=== PATIENT | female | born 1960 | race African-American/Black ===

== ENCOUNTER 2023-01-31 18:56 | Observation (INO) ==
--- NOTE | 2023-01-31 19:31 | DR.CP ---
HPI Time Seen Time Seen by Provider: 01/31/23 19:31 HPI Comment HPI Comment: PATIENT IS 62YR OLD FEMALE WITH HISTORY OF DM, HTN, DYSLIPIDEMIA CHF IN ER WITH CHEST PAIN, DIZZINESS, SYNCOPY AND NEAR SYNCOPY. SYMPTOMS STATED TUESDAY. CURRENTLY UNDERGOING CARDIAC WORK UP UNDER DR. SMITH IN [facility]. SHE HAS INDWELLING HOLTER MONITOR. PENDING ECHO AND STRESS TEST. PATIENT IS WEAK AND TIRED. NO FEVER OR CONGESTION. SHE HAS BEING HAVING LT SHOULDER PAIN SINCE TUESDAY. PAIN IS CURRENTLY 5/10 AND IS SHARP. SHE IS FEELING WORSE PAST SEVERAL HOURS. Complaint Chief Complaint Doctor Comments: CHEST PAIN, EPISODE OF SYNCOPY AND NEAR SYNCOPY AND DIZZINESS SINCE LAST TUESDAY. WORSE TODAY. COVID-19 Coronavirus risk:travel/contact w/high risk person: No Has patient experienced Coronavirus symptoms: No Reviewed Nurses Notes Review: Yes ROS Review of Systems Constitutional: Weakness and Fatigue; negative Fever Eyes: No Symptoms Reported; negative Blurred Vision ENTM: negative Nose Discharge or Nose Congestion Respiratoy: Short of Breath (ON EXERTION.); negative Moist Cough or Wheezing Cardiovascular: Chest Pain and Syncope Gastrointestinal/Abdominal: No Symptoms Reported; negative Abdominal Pain, Constipation, Diarrhea or Vomiting Genitourinary: No Symptoms Reported; negative Dysuria, Frequency or Hematuria Neurological: Weakness and Dizziness; negative Headache Musculoskeletal: Arm (LEFT ARM PAIN.); negative Muscle Pain Integumentary: No Symptoms Reported; negative Rash or Juandice Hematologic/Lymphatic: No Symptoms Reported, Easy Bleeding and Easy Bruising Endocrine: No Symptoms Reported; negative Increased Thirst or Increased Urine Psychiatric: No Symptoms Reported All Other Systems: Reviewed and Negative PE Vitals Vitals: Temperature 98.2 F Pulse Rate 70 Respiratory Rate 15 Blood Pressure 143/75 O2 Sat by Pulse Oximetry 99 General Limitations: No Limitations General Appearance: Alert and In No Apparent Distress Head Head Exam: Normal Inspection and Atraumatic Eyes Eye exam: Normal Appearance, PERRL and EOMI; negative Scleral Icterus or Conjunctival Injection ENT ENT Exam: Normal Exam, Normal Oropharynx, Normal External Ear Exam and TM's Normal Bilaterally Chest Chest Inspection: Normal Inspection and Symmetric Chest Wall Rise Respiratory Respiratory Exam: Normal Lung Sounds Bilat and Accessory Muscle Use Respiratory Exam: Bilateral: Rhonchi Cardiovascular Cardiovascular Exam: Regular Rate, Normal Rhythm and Normal Heart Sounds; negative Systolic Murmur or Diastolic Murmur Pulse: Normal Edema: Normal Abdominal Exam Abdominal Exam: Normal Inspection, Normal Bowel Sounds and Soft; negative Tenderness Extremities Extremities Exam: Normal Inspection and Normal Capillary Refill; negative Edema Back Back Exam: Normal Inspection; negative (R) CVA Tenderness or (L) CVA Tenderness Neurologic Neurological Exam: Alert, Oriented X3, CN II-XII Intact, Normal Gait and Reflexes Normal; negative Motor Sensory Deficit Psychiatric Psychiatric Exam: Normal Affect and Normal Mood Skin Skin Exam: Intact MDM Additional Information Additional Information Obtained From: Family Differential Diagnosis Differential Diagnosis: Angina, Aortic Dissection, CHF, Myocardial Infarction, Pericarditis, Pneumonia and Pulmonary Embolus COURSE Treatment Treatment: SEE ORDERS DONE WHILE PATIENT WAS IN ER. Consultation Consultation Comments: DISCUSSED PATIENT WITH DR. MILLAN. HE WILL ADMIT PATIENT. Education/Counseling Education/Counseling: Patient and Family Educated On: Treatment ROR Labs Reviewed Laboratory Results Reviewed?: Yes Result Diagrams: 02/02/23 05:13 02/02/23 05:13 Laboratory: WBC 5.4 X10^3/uL (3.6-10.0) 01/31/23 19:54 RBC 4.21 X10^6/uL (3.5-5.4) 01/31/23 19:54 Hgb 10.8 g/dL (12.0-16.0) L 01/31/23 19:54 Hct 32.1 % (36.0-47.0) L 01/31/23 19:54 MCV 76.4 fL (80.0-100.0) L 01/31/23 19:54 MCH 25.6 pg (27.0-34.0) L 01/31/23 19:54 MCHC 33.6 g/dL (33.0-35.0) 01/31/23 19:54 RDW 14.7 % (11.6-16.5) 01/31/23 19:54 Plt Count 282 X10^3/uL (150.0-450.0) 01/31/23 19:54 MPV 7.5 fL (7.4-11.0) 01/31/23 19:54 Neut % (Auto) 53.5 % (42.0-75.0) 01/31/23 19:54 Lymph % (Auto) 33.5 % (21.0-51.0) 01/31/23 19:54 [place] % (Auto) 12.4 % (0.0-13.0) 01/31/23 19:54 Eos % (Auto) 0.4 % (0.9-2.9) L 01/31/23 19:54 Baso % (Auto) 0.2 % (0.2-1.0) 01/31/23 19:54 Neut # (Auto) 2.9 x10^3/uL (2.2-4.8) 01/31/23 19:54 Lymph # (Auto) 1.8 X10^3/uL (1.3-2.9) 01/31/23 19:54 [place] # (Auto) 0.7 x10^3/uL (0.3-0.8) 01/31/23 19:54 Eos # (Auto) 0.0 x10^3/uL (0.0-0.2) 01/31/23 19:54 Baso # (Auto) 0.0 X10^3/uL (0.0-0.1) 01/31/23 19:54 Absolute Nucleated RBC 0.1 /100WBC 01/31/23 19:54 D-Dimer 0.73 ug/ml (0.0-0.57) H 01/31/23 19:54 Sodium 142 mmol/L (136-145) 01/31/23 19:54 Corrected Sodium TNP 01/31/23 19:54 Potassium 3.5 mmol/L (3.5-5.1) 01/31/23 19:54 Chloride 100 mmol/L (98-107) 01/31/23 19:54 Carbon Dioxide 37.4 mmol/L (21-32) H 01/31/23 19:54 BUN 20 mg/dL (7-18) H 01/31/23 19:54 Creatinine 1.69 mg/dL (0.55-1.02) H 01/31/23 19:54 Est GFR (MDRD) Af Amer 40 (>60) L 01/31/23 19:54 Est GFR (MDRD) Non-Af 33 (>60) L 01/31/23 19:54 Glucose 84 mg/dL (65-99) 01/31/23 19:54 Calcium 9.1 mg/dL (8.5-10.1) 01/31/23 19:54 Corrected Calcium 9.7 mg/dL (8.5-10.1) 01/31/23 19:54 Total Bilirubin 0.80 mg/dL (0.2-1.0) 01/31/23 19:54 AST 23 Units/L (15-37) 01/31/23 19:54 ALT 18 Units/L (12-78) 01/31/23 19:54 Alkaline Phosphatase 72 Units/L (46-116) 01/31/23 19:54 Creatine Kinase 65 Units/L (26-192) 01/31/23 19:54 Troponin I High Sens 15.6 ng/L (4.0-60.0) 01/31/23 19:54 Total Protein 7.0 g/dL (6.4-8.2) 01/31/23 19:54 Albumin 3.3 g/dL (3.4-5.0) L 01/31/23 19:54 Globulin 3.7 g/dL (2.5-4.5) 01/31/23 19:54 Albumin/Globulin Ratio 0.9 Ratio (1.1-2.1) L 01/31/23 19:54 EKG Rate: 67 [place]: Normal Rhythm: NSR Block: None Hypertrophy: LVH ST: Nonsp Opioid Opioid Risk Tool Total: 0 Total Score Risk Category: Low Risk Copyright: Mason BAHENA predicting aberrant behaviors Discharge Plan Diagnosis Discharge Problem: Chest pain, Episode of syncope, Elevated d-dimer, Dizziness Discharge Plan Patient Disposition: ADMITTED INPATIENT Condition: Stable
[2023-01-31] MEDS ORDERED: ASPIRIN 81 MG CHEWTAB PO ONE (19:45)
[2023-01-31] MEDS ORDERED: ASPIRIN 81 MG CHEWTAB ONE (19:50)
--- NOTE | 2023-01-31 19:53 | EKG ---
Test Reason : CHEST PAIN Blood Pressure : */* mmHG Vent. Rate : 67 BPM Atrial Rate : 67 BPM P-R Int : 194 ms QRS Dur : 74 ms QT Int : 428 ms P-R-T Axes : 90 -12 35 degrees QTc Int : 452 ms Normal sinus rhythm Minimal voltage criteria for LVH, may be normal variant ( R in aVL ) Nonspecific T wave abnormality Abnormal ECG Confirmed by Moustapha Orourke ([id number]) on 02/02/2023 8:07:41 AM Referred By: Confirmed By: Moustapha Orourke
[2023-01-31 20:04] LABS: BASOPHILS % (AUTO) 0.2 % (0.2-1.0); EOSINOPHILS % (AUTO) 0.4 % (0.9-2.9); HEMATOCRIT 32.1 % (36.0-47.0); HEMOGLOBIN 10.8 g/dL (12.0-16.0); LYMPHOCYTES # (AUTO) 1.8 X10^3/uL (1.3-2.9); LYMPHOCYTES % (AUTO) 33.5 % (21.0-51.0); MEAN CORPUSCULAR HEMOGLOBIN 25.6 pg (27.0-34.0); MEAN CORPUSCULAR HGB CONC 33.6 g/dL (33.0-35.0); MEAN CORPUSCULAR VOLUME 76.4 fL (80.0-100.0); MEAN PLATELET VOLUME 7.5 fL (7.4-11.0); MONOCYTES # (AUTO) 0.7 x10^3/uL (0.3-0.8); MONOCYTES % (AUTO) 12.4 % (0.0-13.0); NEUTROPHILS # (AUTO) 2.9 x10^3/uL (2.2-4.8); NEUTROPHILS % (AUTO) 53.5 % (42.0-75.0); RED BLOOD COUNT 4.21 X10^6/uL (3.5-5.4); RED CELL DISTRIBUTION WIDTH 14.7 % (11.6-16.5); WHITE BLOOD COUNT 5.4 X10^3/uL (3.6-10.0)
[2023-01-31 20:16] LABS: ALANINE AMINOTRANSFERASE 18 Units/L (12-78); ALBUMIN 3.3 g/dL (3.4-5.0); ALKALINE PHOSPHATASE 72 Units/L (46-116); ASPARTATE AMINO TRANSFERASE 23 Units/L (15-37); BLOOD UREA NITROGEN 20 mg/dL (7-18); CALCIUM 9.1 mg/dL (8.5-10.1); CARBON DIOXIDE 37.4 mmol/L (21-32); CHLORIDE 100 mmol/L (98-107); COR CA(FOR HYPOALB) 9.7 mg/dL (8.5-10.1); CREATINE KINASE 65 Units/L (26-192); CREATININE 1.69 mg/dL (0.55-1.02); SODIUM 142 mmol/L (136-145); eGFR NON BLACK RACES 33 (>60)
[2023-01-31] MEDS ORDERED: NS 1,000 ML IV 1,000 ML IV SCH (23:00)
[2023-01-31] MEDS ORDERED: K-DUR TAB 20 MEQ PO PRN (23:03)
[2023-01-31] MEDS ORDERED: KLOR-CON PO PRN (23:03)
[2023-01-31] MEDS ORDERED: K-RIDER 10 MEQ/NS 100 ML 10 MEQ/100 ML BAG IV PRN (23:03)
[2023-01-31] MEDS ORDERED: MICRO K EXTEN CAP 10 MEQ PO PRN (23:03)
[2023-01-31] MEDS: LOVENOX INJ 60 MG SYR SC SCH (23:30)
[2023-01-31 23:35] VITALS: BMI 25.0
--- NOTE | 2023-01-31 23:42 | EKG ---
Test Reason : Chest pain Blood Pressure : */* mmHG Vent. Rate : 66 BPM Atrial Rate : 66 BPM P-R Int : 230 ms QRS Dur : 90 ms QT Int : 312 ms P-R-T Axes : 89 -13 184 degrees QTc Int : 327 ms Sinus rhythm with 1st degree AV block Nonspecific T wave abnormality Abnormal ECG When compared with ECG of 31-JAN-2023 19:17, (Unconfirmed) SC interval has increased QT has shortened Confirmed by Moustapha Orourke ([id number]) on 02/02/2023 8:09:02 AM Referred By: Confirmed By: Moustapha Orourke
[2023-02-01] MEDS ORDERED: MORPHINE SULFATE INJ 2 MG INJ IVP PRN (05:25)
[2023-02-01 05:28] LABS: BASOPHILS % (AUTO) 0.3 % (0.2-1.0); EOSINOPHILS # (AUTO) 0.1 x10^3/uL (0.0-0.2); EOSINOPHILS % (AUTO) 1.4 % (0.9-2.9); HEMOGLOBIN 10.8 g/dL (12.0-16.0); LYMPHOCYTES # (AUTO) 2.3 X10^3/uL (1.3-2.9); LYMPHOCYTES % (AUTO) 43.2 % (21.0-51.0); MEAN CORPUSCULAR HEMOGLOBIN 25.3 pg (27.0-34.0); MEAN CORPUSCULAR HGB CONC 32.7 g/dL (33.0-35.0); MEAN CORPUSCULAR VOLUME 77.3 fL (80.0-100.0); MEAN PLATELET VOLUME 7.7 fL (7.4-11.0); MONOCYTES # (AUTO) 0.6 x10^3/uL (0.3-0.8); NEUTROPHILS # (AUTO) 2.3 x10^3/uL (2.2-4.8); NEUTROPHILS % (AUTO) 43.1 % (42.0-75.0); RED BLOOD COUNT 4.27 X10^6/uL (3.5-5.4); RED CELL DISTRIBUTION WIDTH 14.6 % (11.6-16.5); WHITE BLOOD COUNT 5.4 X10^3/uL (3.6-10.0)
--- NOTE | 2023-02-01 05:40 | EKG ---
Test Reason : chest pain Blood Pressure : */* mmHG Vent. Rate : 68 BPM Atrial Rate : 68 BPM P-R Int : 204 ms QRS Dur : 92 ms QT Int : 312 ms P-R-T Axes : 67 -2 235 degrees QTc Int : 331 ms Normal sinus rhythm Nonspecific T wave abnormality Abnormal ECG When compared with ECG of 31-JAN-2023 23:25, (Unconfirmed) No significant change was found Confirmed by Moustapha Orourke ([id number]) on 02/02/2023 8:08:58 AM Referred By: Confirmed By: Moustapha Orourke
[2023-02-01 05:50] LABS: ALANINE AMINOTRANSFERASE 16 Units/L (12-78); ALKALINE PHOSPHATASE 69 Units/L (46-116); ASPARTATE AMINO TRANSFERASE 22 Units/L (15-37); BLOOD UREA NITROGEN 15 mg/dL (7-18); CALCIUM 8.7 mg/dL (8.5-10.1); CARBON DIOXIDE 35.2 mmol/L (21-32); CHLORIDE 102 mmol/L (98-107); CHOL/HDL RATIO 2.1 (0.0-5.0); CHOLESTEROL 66 mg/dL (0-200); COR CA(FOR HYPOALB) 9.5 mg/dL (8.5-10.1); CREATININE 1.13 mg/dL (0.55-1.02); HDL CHOLESTEROL 31 mg/dL (40-60); MAGNESIUM 1.4 mg/dL (2.0-2.9); SODIUM 143 mmol/L (136-145); TOTAL PROTEIN 6.9 g/dL (6.4-8.2); TRIGLYCERIDES 42 mg/dL (0-150); eGFR NON BLACK RACES 52 (>60)
[2023-02-01 06:08] LABS: INR 1.08 (0.8-1.3)
[2023-02-01] MEDS: LOVENOX INJ 60 MG SYR SC SCH ×2 (09:27→21:15)
[2023-02-01] MEDS: NEURONTIN CAP 300 MG PO SCH ×4 (09:27→21:13)
[2023-02-01] MEDS: ASPIRIN PO SCH (09:27)
[2023-02-01] MEDS: COREG TAB 25 MG PO SCH ×2 (09:28→21:14)
[2023-02-01] MEDS: NORVASC TAB 10 MG PO SCH (09:31)
[2023-02-01] MEDS: PriLOSEC PO SCH (09:31)
[2023-02-01] MEDS: PROTONIX INJ 40 MG VIAL 80 MG in NS 100 ML IV 80 ML IV SCH ×2 (09:37→21:15)
[2023-02-01] MEDS ORDERED: NS 1,000 ML IV 1,000 ML IV SCH ×2 (10:00)
--- NOTE | 2023-02-01 10:56 | CT ---
HISTORYElevated D-dimer, shortness of breathSTUDYCTA chest with contrast for pulmonary embolusTechnique: Axial post-contrast images with coronal, sagittal, and 3 dimensional maximum intensity projection images obtained and evaluated. Dose reduction procedures were used with mA/kv adjusted for body size.COMPARISONNoneFINDINGSThere is no evidence for acute pulmonary thromboembolic disease. Examination of the mediastinum demonstrated no evidence for mediastinal masses, enlarged mediastinal or enlarged hilar adenopathy or significant aortic abnormality. No pleural effusions are identified. No chest wall or axillary abnormality is identified. Postsurgical changes are present in the area of the gastroesophageal junction. Those portions of the upper abdominal organs visualized were within normal limits to the limitations of early arterial injection timing. Examination of the lung howard demonstrated no significant nodules, masses, alveolar infiltrates, areas of consolidation, peribronchial thickening, or bronchiectasis.IMPRESSIONNo evidence for acute pulmonary thromboembolic diseaseNo acute pulmonary infiltrates identifiedElectronically signed by: KACEY HOLCOMB (Feb 01, 2023 10:54:46)
--- NOTE | 2023-02-01 18:15 | DR.H&P ---
H&P - History & Physical for Day of: H&P Date: 01/31/23 - Chief Complaint Chief Complaint: chest pain - History of Present Illness History of Present Illness: PT IS 62 BF, ER ADMISSION AFTER PRESENTING WITH CO CHEST PAIN AND SOB. PT DENIES ANY FEVER OR FLU LIKE SYMPTOMS. PT REPORTS SHE WILL "LOSE" HER VOICE WHILE AT WORK. PT REPORTS PMH OF HTN AND HEART FAILURE. PT DENIES ANY PREVIOUS CABG OR STENTING. PT RECENTLY SEEN DR RAJPUT AND HAS ON A HOLTER MONITOR. PT REPORTS SHE WAS INSTRUCTED TO REPORT TO THE ER BECAUSE HER CO CHEST PAIN. - Past Medical History Past Medical History: CHF, Depression, Diabetes, Dyslipidemia, GERD, Hypertension - Past Surgical History Surgical History: Cholecystectomy, Ortho Surgery, Weight Loss Surgery, Other - Family History Family Medical History: Diabetes Mellitus, Hypertension - Social History Does patient currently use any type of tobacco product: No Have you used tobacco products in the last 12 months: No Type of Tobacco Use: None Does any household member use tobacco: No Alcohol Use: None Drug Use: None - Medications Home Medications: Sulfa (Sulfonamide Antibiotics) [SULFA] Allergy (Verified 01/31/23 19:40) CONTINUE taking the following medications amitriptyline 25 mg tablet 12.5 mg PO QPM 01/31/23 [History] amlodipine 10 mg tablet 10 mg PO QDAY 01/31/23 [History] atorvastatin 20 mg tablet 20 mg PO QHS 01/31/23 [History] carvedilol 25 mg tablet 25 mg PO BID 01/31/23 [History] ergocalciferol (vitamin D2) 1,250 mcg (50,000 unit) capsule (Vitamin D2) 1,250 mcg PO Q2W 01/31/23 [History] furosemide 40 mg tablet 40 mg PO QDAY 01/31/23 [History] gabapentin 300 mg capsule 300 mg PO QID 01/31/23 [History] omeprazole 20 mg capsule,delayed release 20 mg PO QDAY 01/31/23 [History] - Review of Systems Constitutional: No Symptoms Reported Eyes: No Symptoms Reported ENT: No Symptoms Reported Respiratory: Shortness of Breath Cardiovascular: Chest Pain Gastrointestinal: No Symptoms Reported Genitourinary: No Symptoms Reported Musculoskeletal: No Symptoms Reported Skin: No Symptoms Reported Neurological: No Symptoms Reported - Physical Exam Vital Signs: Temperature 98.6 F Pulse Rate [Brachial] 63 Pulse Rate [Left] 69 Pulse Rate 69 Respiratory Rate 18 Blood Pressure [Right Arm] 117/61 Blood Pressure 150/78 O2 Sat by Pulse Oximetry 98 Oriented: Normal Eyes: Normal Ear: Normal Throat: Normal Respiratory: RLL Diminished, LLL Diminished Cardiovascular: Normal. negative: Edema : Normal Auscultation: Bowel Sounds: Normal Palpation: Normal Tenderness: Normal Skin: Normal Musculoskeletal: Normal Psychiatric: Anxiety Affect: Anxious Speech Pattern: Clear, Appropriate - Assessment/Plan (1) Chest pain Status: Acute Plan: ADMIT, SERIAL CE AND EKG. BP MONITORING. VERIFY HOME MEDICATION,. PRN SUPPLEMENTAL O2 (2) Hypertension Status: Acute (3) Elevated d-dimer Status: Acute - Allergies Allergies/Adverse Reactions: Allergies Allergy/AdvReac Type Severity Reaction Status Date / Time Sulfa (Sulfonamide Allergy Verified 01/31/23 19:40 Antibiotics) [SULFA]
[2023-02-01] MEDS ORDERED: LIPITOR TAB 20 MG PO SCH (21:00)
[2023-02-01] MEDS ORDERED: ELAVIL PO SCH (21:00)
[2023-02-02] MEDS: MAGNESIUM SULFATE 1 GRAM/100 mL PREMIX 1 G/100 ML BAG IV PRN ×3 (02:45→04:38)
[2023-02-02 06:15] LABS: BASOPHILS % (AUTO) 0.7 % (0.2-1.0); EOSINOPHILS # (AUTO) 0.1 x10^3/uL (0.0-0.2); EOSINOPHILS % (AUTO) 1.2 % (0.9-2.9); HEMATOCRIT 29.7 % (36.0-47.0); LYMPHOCYTES % (AUTO) 40.7 % (21.0-51.0); MEAN CORPUSCULAR HEMOGLOBIN 25.9 pg (27.0-34.0); MEAN CORPUSCULAR HGB CONC 33.7 g/dL (33.0-35.0); MEAN PLATELET VOLUME 8.2 fL (7.4-11.0); MONOCYTES # (AUTO) 0.6 x10^3/uL (0.3-0.8); MONOCYTES % (AUTO) 12.8 % (0.0-13.0); NEUTROPHILS # (AUTO) 2.2 x10^3/uL (2.2-4.8); NEUTROPHILS % (AUTO) 44.6 % (42.0-75.0); RED BLOOD COUNT 3.86 X10^6/uL (3.5-5.4); RED CELL DISTRIBUTION WIDTH 14.6 % (11.6-16.5); WHITE BLOOD COUNT 4.9 X10^3/uL (3.6-10.0)
[2023-02-02] MEDS: PROTONIX INJ 40 MG VIAL 80 MG in NS 100 ML IV 80 ML IV SCH (06:21)
[2023-02-02 06:39] LABS: ALANINE AMINOTRANSFERASE 15 Units/L (12-78); ALBUMIN 2.6 g/dL (3.4-5.0); ALKALINE PHOSPHATASE 61 Units/L (46-116); ASPARTATE AMINO TRANSFERASE 25 Units/L (15-37); BLOOD UREA NITROGEN 12 mg/dL (7-18); CALCIUM 8.8 mg/dL (8.5-10.1); CARBON DIOXIDE 30.4 mmol/L (21-32); CHLORIDE 106 mmol/L (98-107); COR CA(FOR HYPOALB) 9.9 mg/dL (8.5-10.1); CREATINE KINASE 47 Units/L (26-192); CREATININE 0.98 mg/dL (0.55-1.02); SODIUM 143 mmol/L (136-145); TOTAL PROTEIN 6.1 g/dL (6.4-8.2); eGFR NON BLACK RACES > 60 (>60)
[2023-02-02] MEDS: LOVENOX INJ 60 MG SYR SC SCH (09:14)
[2023-02-02] MEDS: NEURONTIN CAP 300 MG PO SCH ×2 (09:14→13:35)
[2023-02-02] MEDS: ASPIRIN PO SCH (09:14)
[2023-02-02] MEDS: PriLOSEC PO SCH (09:14)
[2023-02-02] MEDS: COREG TAB 25 MG PO SCH (09:15)
[2023-02-02] MEDS: NORVASC TAB 10 MG PO SCH (09:22)
[2023-02-02 16:43] VITALS: BP 113/58
== END 2023-02-02 16:25 | disposition home or self-care (01) ==
LOC: MED/SURG 18:56 → ER 18:56 → MED/SURG 23:06
PROVIDERS: ADMIT Internal Medicine; ATTEND Internal Medicine
DX: I10 Essential (primary) hypertension; E11.65 Type 2 diabetes mellitus with hyperglycemia; R55 Syncope and collapse; R07.89 Other chest pain; E78.2 Mixed hyperlipidemia; R06.02 Shortness of breath; R79.1 Abnormal coagulation profile; R42 Dizziness and giddiness; K21.9 Gastro-esophageal reflux disease without esophagitis; R94.31 Abnormal electrocardiogram [ECG] [EKG]